=== PATIENT | male | born 1950 | race Two or more races ===

== ENCOUNTER 2024-02-18 12:27 | Emergency (ER) | payer MEDICARE, OTHER ==
[~2024-02-18] VITALS: Ht 175.3 cm; Wt 74.8 kg
[2024-02-18] MEDS ORDERED: CIPR5DRO RIGHTEYE (13:23)
[2024-02-18 14:09] VITALS: BP 108/62; TEMP 98.2; O2SAT 99
== END 2024-02-18 14:15 ==
LOC: ER 12:43
DX: H16.001 Unspecified corneal ulcer, right eye (principal); Z91.040 Latex allergy status; I10 Essential (primary) hypertension; E11.9 Type 2 diabetes mellitus without complications; F41.9 Anxiety disorder, unspecified; F42.9 Obsessive-compulsive disorder, unspecified; Z86.69 Personal history of other diseases of the nervous system and sense organs